=== PATIENT | male | born 2000 | race Caucasian/White ===

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

== ENCOUNTER 2022-05-31 07:11 | Emergency (ER) | payer OTHER ==
[2022-05-31 07:20] VITALS: BP 144/83; PULSE 82; O2SAT 97
--- NOTE | 2022-05-31 07:39 | ERPHSYRPT ---
- History of Present Illness Time Seen by Provider: 05/31/22 07:25 Source: patient Exam Limitations: no limitations Patient Subjective Stated Complaint: L sided numbness of face, leg,and arm when trying to fall asleep 05/26 & 05/30. states vision in L eye is blurry when these episodes occur. Triage Nursing Assessment: Pt ambulates with steady gait to ER bed 6. A & OX3, answers questions appropriately. Calm, cooperative. Speech clear and appropria te. VSS. Skin PWD. Pt states L sided numbness of face, leg, and arm when trying to fall asleep twice over the last week. Episodes quickly resolve, states vision in L eye is blurry when these episodes occur. Pt denies symptoms at this current time. Also denies HERNADEZ, vision changes, numbness, or nausea currently. States feels like he has a slight bump on the back L side of his head. Very small bump (less than pea sized) felt upon palpation. Pt denies any recent head trauma, falls, etc. Denies any neuro history. PERRLA noted upon exam. Pupils 3mm. NIH score 0. Physician History: This is a 21-year-old white male who states that he had had a total of 3 episodes where just as he was falling asleep he felt as though he could not move his left side of the body. He also complains of a "bump" on the left side of his posterior scalp. He did not suffer any trauma to his head per his recollection. He denies illicit drug use. He denies alcohol use. Patient denies any prescription medication use. Patient is concerned because he is never had this type of sensation before this week. Patient has no known seizure disorders. Each time, by the time he woke up, his symptoms are gone. Patient has no headache. He has not had any fever or flulike symptoms. He has no neck pain. He has no visual changes although he states that when he has had those episodes his left side vision was not as clear as the right side. Timing/Duration: today Severity: mild Modifying Factors: Improves With: nothing Associated Symptoms: denies symptoms Allergies/Adverse Reactions: No Known Drug Allergies Allergy (Verified 05/31/22 07:25) Home Medications: No Reportable Medications [No Reported Medications] 05/31/22 [History] Hx Tetanus, Diphtheria Vaccination/Date Given: Yes Hx Influenza Vaccination/Date Given: No Hx Pneumococcal Vaccination/Date Given: No Travel Risk - International Travel Have you traveled outside of the country in past 3 weeks: No - Coronavirus Screening Are you exhibiting any of the following symptoms?: No Close contact with a COVID-19 positive Pt in past 14-21 Days: No - Vaccine Status Have you recieved a Covid-19 vaccination: No - Review of Systems Constitutional: No Symptoms Eyes: No Symptoms Ears, Nose, & Throat: No Symptoms Respiratory: No Symptoms Cardiac: No Symptoms Abdominal/Gastrointestinal: No Symptoms Genitourinary Symptoms: No Symptoms Musculoskeletal: No Symptoms Skin: No Symptoms Neurological: No Symptoms Psychological: No Symptoms Endocrine: No Symptoms Hematologic/Lymphatic: No Symptoms Immunological/Allergic: No Symptoms All Other Systems: Reviewed and Negative - Past Medical History Pertinent Past Medical History: Yes Neurological History: No Pertinent History ENT History: No Pertinent History Cardiac History: No Pertinent History Respiratory History: Asthma Endocrine Medical History: No Pertinent History Musculoskeletal History: No Pertinent History GI Medical History: No Pertinent History History: No Pertinent History Psycho-Social History: No Pertinent History - Past Surgical History Past Surgical History: No - Social History Smoking Status: Never smoker Exposure to second hand smoke: No Alcohol Use: None Drug Use: none Patient Lives Alone: No Significant Family History: no pertinent family hx - Nursing Vital Signs Nursing Vital Signs: Initial Vital Signs Temperature 97.1 F 05/31/22 07:15 Pulse Rate 82 05/31/22 07:15 Respiratory Rate 16 05/31/22 07:15 Blood Pressure 144/83 05/31/22 07:15 O2 Sat by Pulse Oximetry 97 05/31/22 07:15 Pain Scale Pain Intensity 0 - Physical Exam General Appearance: no apparent distress, alert, anxiety, thin Eye Exam: PERRL/EOMI, eyes nml inspection Ears, Nose, Throat Exam: normal ENT inspection, moist mucous membranes Neck Exam: normal inspection, non-tender, supple, full range of motion Respiratory Exam: normal breath sounds, lungs clear, airway intact, No chest tenderness, No respiratory distress Cardiovascular Exam: regular rate/rhythm, normal heart sounds, normal peripheral pulses Gastrointestinal/Abdomen Exam: soft, normal bowel sounds, No tenderness Rectal Exam: not done Back Exam: normal inspection, normal range of motion, CVA tenderness Extremity Exam: normal inspection, normal range of motion, pelvis stable Neurologic Exam: alert, oriented x 3, cooperative, 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 as tested, normal mood/affect, nml cerebellar function, nml station & gait, sensation nml Skin Exam: normal color, warm, dry Lymphatic Exam: No adenopathy SpO2 Interpretation: normal SpO2: 97 O2 Delivery: Room Air - Course Nursing assessment & vital signs reviewed: Yes Ordered Tests: Active Orders 24 hr Category Date Time Status NPO (ED) STAT Care 05/31/22 07:39 Active HEAD WITHOUT CONTRAST [CT] Stat Exams 05/31/22 07:39 Completed CBC W DIFF Stat Lab 05/31/22 07:50 Completed CMP Stat Lab 05/31/22 07:50 Completed ETHYL ALCOHOL Stat Lab 05/31/22 07:50 Completed UA W/RFX CULTURE Stat Lab 05/31/22 07:50 Completed Urine Triage Profile Stat Lab 05/31/22 07:50 Completed Lab/Rad Data: Laboratory Result Diagrams 05/31/22 07:50 05/31/22 07:50 Laboratory Results 05/31/22 05/31/22 05/31/22 Range/Units 07:50 07:50 07:50 WBC 7.1 (4.0-10.5) x10^3/uL RBC 5.18 (4.1-5.6) x10^6/uL Hgb 14.2 (12.5-18.0) g/dL Hct 44.4 (42-50) % MCV 85.7 (78-100) fL MCH 27.4 (26-32) pg MCHC 32.0 (32-36) g/dL RDW 12.4 (11.5-14.0) % Plt Count 250 (150-450) x10^3/uL MPV 11.5 H (7.5-11.0) fL Gran % 47.1 (36.0-66.0) % Immature Gran % (Auto) 0.3 (0.00-0.4) % Nucleat RBC Rel Count 0.0 (0.00-0.1) % Eos # (Auto) 0.08 (0-0.5) x10^3/uL Immature Gran # (Auto) 0.02 (0.00-0.03) x10^3u/L Absolute Lymphs (auto) 2.93 (1.0-4.6) x10^3/uL Absolute Monos (auto) 0.72 (0.0-1.3) x10^3/uL Absolute Nucleated RBC 0.00 (0.00-0.01) x10^3u/L Lymphocytes % 41.0 (24.0-44.0) % Monocytes % 10.1 (0.0-12.0) % Eosinophils % 1.1 (0.00-5.0) % Basophils % 0.4 (0.0-0.4) % Absolute Granulocytes 3.36 (1.4-6.9) x10^3/uL Basophils # 0.03 (0-0.4) x10^3/uL Sodium 139 (137-145) mmol/L Potassium 4.6 (3.5-5.1) mmol/L Chloride 104 (98-107) mmol/L Carbon Dioxide 27 (22-30) mmol/L Anion Gap 13.7 (5-15) MEQ/L BUN 15 (9-20) mg/dL Creatinine 1.00 (0.66-1.25) mg/dL Estimated GFR > 60.0 ML/MIN Glucose 108 H (74-106) mg/dL Calcium 10.1 (8.4-10.2) mg/dL Total Bilirubin 0.40 (0.2-1.3) mg/dL AST 21 (17-59) U/L ALT 13 (0-50) U/L Alkaline Phosphatase 101 (38-126) U/L Serum Total Protein 7.5 (6.3-8.2) g/dL Albumin 4.5 (3.5-5.0) g/dL Urinalys Dipstick Clnc MAIN LAB Urine Color YELLOW (YELLOW) Urine Appearance CLEAR (CLEAR) Urine pH 6.5 (5-6) Ur Specific [place] 1.015 (1.005-1.025) POC Urine Protein Conf NEGATIVE (Negative) Urine Ketones NEGATIVE (NEGATIVE) Urine Nitrite NEGATIVE (NEGATIVE) Urine Bilirubin NEGATIVE (NEGATIVE) Urine Urobilinogen 0.2 (0-1) mg/dL Urine Leukocytes NEGATIVE (NEGATIVE) Urine WBC (Auto) NONE (0-5) /HPF Urine RBC (Auto) NONE (0-2) /HPF U Epithel Cells (Auto) NONE (FEW) /HPF Urine Bacteria (Auto) NONE (NEGATIVE) /HPF Urine RBC NEGATIVE (0-5) Freedom/ul Ur Culture Indicated? NO Urine Glucose NEGATIVE (NEGATIVE) mg/dL Urine Opiates Level (NEGATIVE) Ur Methadone (NEGATIVE) Urine Barbiturates (NEGATIVE) Ur Phencyclidine (PCP) (NEGATIVE) Urine Amphetamine (NEGATIVE) U Benzodiazepine Level (NEGATIVE) Urine Cocaine (NEGATIVE) Urine Marijuana (THC) (NEGATIVE) Ethyl Alcohol < 10 (0-10) mg/dL 05/31/22 Range/Units 07:50 WBC (4.0-10.5) x10^3/uL RBC (4.1-5.6) x10^6/uL Hgb (12.5-18.0) g/dL Hct (42-50) % MCV (78-100) fL MCH (26-32) pg MCHC (32-36) g/dL RDW (11.5-14.0) % Plt Count (150-450) x10^3/uL MPV (7.5-11.0) fL Gran % (36.0-66.0) % Immature Gran % (Auto) (0.00-0.4) % Nucleat RBC Rel Count (0.00-0.1) % Eos # (Auto) (0-0.5) x10^3/uL Immature Gran # (Auto) (0.00-0.03) x10^3u/L Absolute Lymphs (auto) (1.0-4.6) x10^3/uL Absolute Monos (auto) (0.0-1.3) x10^3/uL Absolute Nucleated RBC (0.00-0.01) x10^3u/L Lymphocytes % (24.0-44.0) % Monocytes % (0.0-12.0) % Eosinophils % (0.00-5.0) % Basophils % (0.0-0.4) % Absolute Granulocytes (1.4-6.9) x10^3/uL Basophils # (0-0.4) x10^3/uL Sodium (137-145) mmol/L Potassium (3.5-5.1) mmol/L Chloride (98-107) mmol/L Carbon Dioxide (22-30) mmol/L Anion Gap (5-15) MEQ/L BUN (9-20) mg/dL Creatinine (0.66-1.25) mg/dL Estimated GFR ML/MIN Glucose (74-106) mg/dL Calcium (8.4-10.2) mg/dL Total Bilirubin (0.2-1.3) mg/dL AST (17-59) U/L ALT (0-50) U/L Alkaline Phosphatase (38-126) U/L Serum Total Protein (6.3-8.2) g/dL Albumin (3.5-5.0) g/dL Urinalys Dipstick Clnc Urine Color (YELLOW) Urine Appearance (CLEAR) Urine pH (5-6) Ur Specific [place] (1.005-1.025) POC Urine Protein Conf (Negative) Urine Ketones (NEGATIVE) Urine Nitrite (NEGATIVE) Urine Bilirubin (NEGATIVE) Urine Urobilinogen (0-1) mg/dL Urine Leukocytes (NEGATIVE) Urine WBC (Auto) (0-5) /HPF Urine RBC (Auto) (0-2) /HPF U Epithel Cells (Auto) (FEW) /HPF Urine Bacteria (Auto) (NEGATIVE) /HPF Urine RBC (0-5) Freedom/ul Ur Culture Indicated? Urine Glucose (NEGATIVE) mg/dL Urine Opiates Level NEGATIVE (NEGATIVE) Ur Methadone NEGATIVE (NEGATIVE) Urine Barbiturates NEGATIVE (NEGATIVE) Ur Phencyclidine (PCP) NEGATIVE (NEGATIVE) Urine Amphetamine NEGATIVE (NEGATIVE) U Benzodiazepine Level NEGATIVE (NEGATIVE) Urine Cocaine NEGATIVE (NEGATIVE) Urine Marijuana (THC) POSITIVE (NEGATIVE) Ethyl Alcohol (0-10) mg/dL - Progress Progress: unchanged - Departure Departure Disposition: Home Clinical Impression: Sleep paralysis Condition: Stable Critical Care Time: No Referrals: RADHA NG [Primary Care Provider] - Follow up/PCP as directed Additional Instructions: Follow-up with your primary care physician for further evaluation and management.
[2022-05-31 08:26] LABS: Absolute Neutrophil Ct (ANC) 3.36 x10^3/uL (1.4-6.9); Basophil (Absolute #) 0.03 x10^3/uL (0-0.4); Eosinophil % 1.1 % (0.00-5.0); Eosinophil (Absolute #) 0.08 x10^3/uL (0-0.5); Hematocrit 44.4 % (42-50); Hemoglobin 14.2 g/dL (12.5-18.0); Lymphocyte (Absolute #) 2.93 x10^3/uL (1.0-4.6); Mean Cell Volume 85.7 fL (78-100); Mean Corpuscular Hemoglobin 27.4 pg (26-32); Mean Platelet Volume 11.5 fL (7.5-11.0); Monocyte (Absolute #) 0.72 x10^3/uL (0.0-1.3); Monocytes % 10.1 % (0.0-12.0); Neutrophil % 47.1 % (36.0-66.0); Platelet Count 250 x10^3/uL (150-450); Red Blood Count 5.18 x10^6/uL (4.1-5.6); Red Cell Distribution Width 12.4 % (11.5-14.0); White Blood Count 7.1 x10^3/uL (4.0-10.5)
[2022-05-31 08:30] LABS: Appearance CLEAR (CLEAR); Bilirubin NEGATIVE (NEGATIVE); Dipstick done @ ? MAIN LAB; Glucose NEGATIVE (NEGATIVE); Ketones NEGATIVE (NEGATIVE); Nitrite NEGATIVE (NEGATIVE); Ph 6.5 (5-6); Protein,Urine Dip NEGATIVE (Negative); RBC NEGATIVE Ery/ul (0-5); Specific Gravity 1.015 (1.005-1.025); Urine Cultured Indicated? NO; Urobilinogen 0.2 mg/dL (0-1)
[2022-05-31 08:32] LABS: ALBUMIN 4.5 g/dL (3.5-5.0); ALKALINE PHOSPHATASE 101 U/L (38-126); ANION GAP 13.7 MEQ/L (5-15); BLOOD UREA NITROGEN 15 mg/dL (9-20); CHLORIDE 104 mmol/L (98-107); Calcium 10.1 mg/dL (8.4-10.2); Carbon Dioxide 27 mmol/L (22-30); EST GLOMERULAR FILTRATION RATE > 60.0 ML/MIN; ETHYL ALCOHOL < 10 mg/dL (0-10); Glucose 108 mg/dL (74-106); Potassium 4.6 mmol/L (3.5-5.1); SGOT/AST 21 U/L (17-59); SGPT/ALT 13 U/L (0-50); SODIUM 139 mmol/L (137-145); Total Protein 7.5 g/dL (6.3-8.2)
--- NOTE | 2022-05-31 08:34 | XRAY ---
Indication: Left-sided numbness. Multiple contiguous axial images obtained through the head without contrast. Comparison: February 24, 2015. Normal appearing brain parenchyma, ventricles, and bony calvarium. Visualized paranasal sinuses and mastoid air cells are clear. Impression: Continued normal CT head without contrast exam.
[2022-05-31 08:44] LABS: Amphetamine,Urine NEGATIVE (NEGATIVE); Barbiturate,Urine NEGATIVE (NEGATIVE); Benzodiazepine,Urine NEGATIVE (NEGATIVE); Cocaine,Urine NEGATIVE (NEGATIVE); Methadone,Urine NEGATIVE (NEGATIVE); Opiate,Urine NEGATIVE (NEGATIVE); PCP,Urine NEGATIVE (NEGATIVE); THC,Urine POSITIVE (NEGATIVE)
== END 2022-05-31 09:18 | disposition home or self-care (01) ==
LOC: ED 07:11
DX: G47.53 Recurrent isolated sleep paralysis (principal); Z28.310 Unvaccinated for COVID-19
CPT/HCPCS: 36415; 70450; 80053; 80307; 81015; 85025; 99283; G0480

== ENCOUNTER 2025-03-17 07:33 | Emergency (ER) | payer OTHER ==
[2025-03-17 07:50] VITALS: TEMP 98.8; O2SAT 100
--- NOTE | 2025-03-17 08:06 | ERPHSYRPT ---
- History of Present Illness Source: patient Exam Limitations: no limitations Patient Subjective Stated Complaint: C/O facial pain to right side of face that started approx 9 hours ago and is constant. Triage Nursing Assessment: Patient ambulated back to ER. He is alert and oriented but tearful and anxious. Skin tone normal. Corner of right side of mouth drawing upward when patient c/o pain. Physician History: Patient developed Kumari's palsy about 10 days ago. He has been taking some prednisone. He finished that course. Last night around 9:00 PM he started having some what he calls spasms in his left facial nerve distribution area.He said that it was somewhat painful. He said it felt like cramps and spasms. That is the only area that he had issues with. He said it would be pretty continuous but he would have breaks and it that would last a few minutes. He says its kind of a baseline discomfort but has intermittent exacerbations that are quite painful.He has no other neurological deficits. Nothing really makes his symptoms better or worse.The patient has pretty high anxiety and is hyperventilating and crying. He says that he was having some cramps in his angers where they were spasming. He said he had some tingling in his hands and feet as well. Basically had classic hyperventilation symptoms and that made him panic more and hyperventilate more.After I talked to him he was able to catch his breath in the panic attack hyperventilation symptoms decreased. Modifying Factors: Improves With: cold therapy Allergies/Adverse Reactions: No Known Drug Allergies Allergy (Verified 03/17/25 07:44) Home Medications: Acyclovir 400 mg PO 5XD 03/17/25 [History] Hx Tetanus, Diphtheria Vaccination/Date Given: Yes Hx Influenza Vaccination/Date Given: No Hx Pneumococcal Vaccination/Date Given: No Immunizations Up to Date: Yes Travel Risk - International Travel Have you traveled outside of the country in past 3 weeks: No - Emerging Infectious Disease Are you exhibiting symptoms associated with any current EIDs: No - Review of Systems Constitutional: No Symptoms Cardiac: No Symptoms Skin: No Symptoms All Other Systems: Reviewed and Negative - Past Medical History Pertinent Past Medical History: Yes Neurological History: No Pertinent History ENT History: No Pertinent History Cardiac History: No Pertinent History Respiratory History: Asthma Endocrine Medical History: No Pertinent History Musculoskeletal History: No Pertinent History GI Medical History: No Pertinent History History: No Pertinent History Psycho-Social History: No Pertinent History Other Medical History: [place] Palsy February 2025 - Past Surgical History Past Surgical History: No Significant Family History: no pertinent family hx - Social History Smoking Status: Never smoker Exposure to second hand smoke: No Drug Use: none - Social Determinants of Health Will the patient participate in the screening: Declined to provide - Nursing Vital Signs Nursing Vital Signs: Initial Vital Signs Temperature 98.8 F 03/17/25 07:45 Pulse Rate 91 H 03/17/25 07:45 Respiratory Rate 28 H 03/17/25 07:45 Blood Pressure 147/96 03/17/25 07:45 O2 Sat by Pulse Oximetry 100 03/17/25 07:45 Pain Scale Pain Intensity 9 - Physical Exam General Appearance: no apparent distress Eye Exam: PERRL/EOMI Ears, Nose, Throat Exam: normal ENT inspection Neck Exam: normal inspection, other (His facial exam revealed isolated motor Deficits to the left facial nerve.) Respiratory Exam: normal breath sounds, other (Patient was initially hyperventilating but then settled down.) Neurologic Exam: alert, oriented x 3, cooperative, other (Motor deficit in the left facial nerve distribution.) Skin Exam: normal color, warm, dry SpO2: 100 - Course Nursing assessment & vital signs reviewed: Yes - Progress Progress: improved Progress Note: Patient was stable here. He is basically having a panic attack secondary to nerve revitalization in his face causing some pain. 03/17/25 08:04 Medical Desision Making - Risk of complications Minimal Risk: Minimal risk of morbidity - Departure Departure Disposition: Home Clinical Impression: Panic attack, Kumari's palsy Condition: Stable Critical Care Time: No Referrals: TANA DON NP [Primary Care Provider, [facility]] - Follow up/PCP as directed Instructions: Panic attack - ED discharge instructions
[2025-03-17] MEDS ORDERED: Ativan 1 MG ONE (08:11)
[2025-03-17] MEDS: Ativan 0.5 MG PO ONE (08:11)
[2025-03-17 08:25] VITALS: BP 117/71; PULSE 80; RESP 18
== END 2025-03-17 08:27 | disposition home or self-care (01) ==
LOC: ED 07:33
DX: G51.0 Bell's palsy (principal); F41.0 Panic disorder [episodic paroxysmal anxiety]; Z79.899 Other long term (current) drug therapy
CPT/HCPCS: 99281; 99283; A9270-GY